=== PATIENT | female | born 1940 | race Caucasian/White ===

== ENCOUNTER 2020-12-12 14:58 | Emergency (ER) | payer MEDICARE ==
[2021-04-05] MEDS ORDERED: METFORMIN HCL500 MG PO (13:08)
[2021-04-05] MEDS ORDERED: SIMVASTATIN20 MG PO (13:10)
[2021-04-05] MEDS ORDERED: LISINOPRIL10 MG PO (13:10)
[2021-04-05] MEDS ORDERED: MULTI FOR HER1 EACH PO (13:11)
[2021-04-05] MEDS ORDERED: ADULT LOW DOSE81 MG PO (13:12)
[2021-04-05] MEDS ORDERED: CALCIUM CARBON600 MG PO (13:13)
[2021-04-05] MEDS ORDERED: COLACE100 MG PO (13:15)
[2021-04-05] MEDS ORDERED: GARLIC1 EAC1 PO (13:16)
[2021-04-05] MEDS ORDERED: VITAMIN D PO (13:17)
== END 2020-12-12 16:25 | disposition home or self-care (01) ==
LOC: ER1 14:58
DX: S61.212A Laceration without foreign body of right middle finger without damage to nail, initial encounter (principal); E11.9 Type 2 diabetes mellitus without complications; W23.0XXA Caught, crushed, jammed, or pinched between moving objects, initial encounter; Y92.009 Unspecified place in unspecified non-institutional (private) residence as the place of occurrence of the external cause
CPT/HCPCS: 12001; 73140; 99283

== ENCOUNTER → 2021-02-07 | Outpatient (CLI) | payer MEDICARE ==
[~2021-02-07] MED LIST: ADULT LOW DOSE81 MG PO; CALCIUM CARBON600 MG PO; COLACE100 MG PO; ELIQUIS2.5 MG PO; GARLIC1 EAC1 PO; HYDROCODON-ACE1 EAC2 PO; LISINOPRIL10 MG PO; METFORMIN HCL500 MG PO; MULTI FOR HER1 EACH PO; SIMVASTATIN20 MG PO; TYLENOL EXTRA500 MG PO; VITAMIN D PO
== END ==
LOC: KOH-I 16:09
DX: M16.0 Bilateral primary osteoarthritis of hip (principal); M47.898 Other spondylosis, sacral and sacrococcygeal region
CPT/HCPCS: 72220; 73522

== ENCOUNTER → 2021-04-05 | Outpatient (CLI) | payer MEDICARE ==
[2021-04-05 11:57] LABS: HEMOGLOBIN 13.6 gm/dl (12.3-15.3); RED BLOOD COUNT 4.29 M/UL (4.00-5.10); WHITE BLOOD COUNT 9.7 K/UL (4.5-11.0)
[2021-04-05 12:32] LABS: BUN/CREATININE RATIO 13 (0-10)
== END ==
LOC: OPSV2 11:00 → EDSTATUS 11:00 → OPSV2 11:04
PROVIDERS: Orthopaedic Surgery
DX: Z01.812 Encounter for preprocedural laboratory examination (principal); M16.11 Unilateral primary osteoarthritis, right hip
CPT/HCPCS: 36415; 80048; 81001; 85025; 87081; 87086; 93005

== ENCOUNTER → 2021-04-06 | Outpatient (CLI) | payer MEDICARE | LOC: MAMO 13:18 | DX: Z12.31 Encounter for screening mammogram for malignant neoplasm of breast (principal); Z80.3 Family history of malignant neoplasm of breast; Z78.0 Asymptomatic menopausal state | CPT/HCPCS: 77063; 77067 ==

== ENCOUNTER → 2021-04-15 | Outpatient (CLI) | payer MEDICARE ==
[2021-04-15 10:28] LABS: BUN/CREATININE RATIO 10 (0-10)
== END ==
LOC: LAB 09:28
PROVIDERS: Orthopaedic Surgery
DX: Z01.812 Encounter for preprocedural laboratory examination (principal); E11.9 Type 2 diabetes mellitus without complications; I10 Essential (primary) hypertension; E78.5 Hyperlipidemia, unspecified; M16.11 Unilateral primary osteoarthritis, right hip
CPT/HCPCS: 80048; 86850; 86900; 86901

== ENCOUNTER 2021-04-16 08:02 | Day surgery (SDC) | payer MEDICARE ==
[~2021-04-16] VITALS: Ht 149.9 cm; Wt 61.2 kg
[~2021-04-16 08:02] MED LIST changes: -ELIQUIS2.5 MG PO; -HYDROCODON-ACE1 EAC2 PO; -TYLENOL EXTRA500 MG PO
[2021-04-16] MEDS ORDERED: TYLENOL EXTRA500 MG PO (08:37)
[2021-04-16] MEDS ORDERED: HYDROCODON-ACE1 EAC2 PO (14:32)
[2021-04-17 04:17] LABS: HEMOGLOBIN 10.4 gm/dl (12.3-15.3); RED BLOOD COUNT 3.35 M/UL (4.00-5.10); WHITE BLOOD COUNT 8.7 K/UL (4.5-11.0)
[2021-04-17 04:41] LABS: BUN/CREATININE RATIO 12 (0-10)
[2021-04-18 06:05] LABS: HEMOGLOBIN 10.4 gm/dl (12.3-15.3); RED BLOOD COUNT 3.32 M/UL (4.00-5.10); WHITE BLOOD COUNT 8.6 K/UL (4.5-11.0)
[2021-04-18 06:29] LABS: BUN/CREATININE RATIO 11 (0-10)
[2021-04-18] MEDS ORDERED: ELIQUIS2.5 MG PO (09:42)
== END 2021-04-18 12:59 | disposition home or self-care (01) ==
LOC: OR 08:02 → EDSTATUS 12:45 → M/S 18:15 → OR 04-18 12:07 → M/S 04-18 12:07 → OR 04-18 12:59
PROVIDERS: Orthopaedic Surgery
PROC: 3E0T3BZ Introduction of Anesthetic Agent into Peripheral Nerves and Plexi, Percutaneous Approach (ICD-10-PCS; 2021-04-16)
PROC: 0SR904A Replacement of Right Hip Joint with Ceramic on Polyethylene Synthetic Substitute, Uncemented, Open Approach (ICD-10-PCS; principal; 2021-04-16 12:45)
DX: M16.0 Bilateral primary osteoarthritis of hip (principal); I10 Essential (primary) hypertension; E78.5 Hyperlipidemia, unspecified; E11.9 Type 2 diabetes mellitus without complications; G89.29 Other chronic pain; K59.00 Constipation, unspecified; Z20.822 Contact with and (suspected) exposure to COVID-19; Z79.82 Long term (current) use of aspirin; Z79.84 Long term (current) use of oral hypoglycemic drugs; Z79.899 Other long term (current) drug therapy
CPT/HCPCS: 36415; 72170; 73501; 76000; 80048; 82962; 85025; 97110-GP-CQ; 97116-GP-CQ; 97161; 97166; 97530-GP-CQ; 97535; C1776; J0690; J1100; J1170; J2250; J2270; J2405; J2704; J2795; J3010; J3370; J7030; J7050; J7120

== ENCOUNTER → 2021-10-29 | Outpatient (CLI) | payer MEDICARE ==
[~2021-10-29] MED LIST changes: +BIO X PO; +CALCIUM PO; +ELIQUIS2.5 MG PO; +GARLIC PO; +HYDROCODON-ACE1 EAC2 PO; +TYLENOL EXTRA500 MG PO; +WOMEN'S DAILY1 EAC1 PO
[2021-10-29 11:13] LABS: HEMOGLOBIN 13.3 gm/dl (12.3-15.3); RED BLOOD COUNT 4.31 M/UL (4.00-5.10); WHITE BLOOD COUNT 5.8 K/UL (4.5-11.0)
[2021-10-29 11:36] LABS: BUN/CREATININE RATIO 21 (0-10)
== END ==
LOC: OPSV2 10:00
PROVIDERS: Orthopaedic Surgery
DX: Z01.818 Encounter for other preprocedural examination (principal); M17.12 Unilateral primary osteoarthritis, left knee
CPT/HCPCS: 36415; 80048; 83036; 85025; 93005

== ENCOUNTER → 2021-11-11 | Outpatient (CLI) | payer MEDICARE ==
[2021-11-11 10:01] LABS: BUN/CREATININE RATIO 14 (0-10)
== END ==
LOC: LAB 09:18
PROVIDERS: Orthopaedic Surgery
DX: Z01.812 Encounter for preprocedural laboratory examination (principal)
CPT/HCPCS: 36415; 80048; 86850; 86900; 86901

== ENCOUNTER → 2021-11-12 | Day surgery (SDC) | payer MEDICARE ==
[~2021-11-12] VITALS: Ht 149.9 cm; Wt 58.5 kg
== END | disposition home or self-care (01) ==
LOC: OR 05:28 → EDSTATUS 11:15 → OR 11:15
PROVIDERS: Orthopaedic Surgery
PROC: 3E0T3BZ Introduction of Anesthetic Agent into Peripheral Nerves and Plexi, Percutaneous Approach (ICD-10-PCS; 2021-11-12)
PROC: 0SRB02A Replacement of Left Hip Joint with Metal on Polyethylene Synthetic Substitute, Uncemented, Open Approach (ICD-10-PCS; principal; 2021-11-12 07:30)
DX: M16.12 Unilateral primary osteoarthritis, left hip (principal); Z20.822 Contact with and (suspected) exposure to COVID-19; I10 Essential (primary) hypertension; E78.5 Hyperlipidemia, unspecified; E11.9 Type 2 diabetes mellitus without complications; Z79.82 Long term (current) use of aspirin; Z79.899 Other long term (current) drug therapy; Z96.641 Presence of right artificial hip joint
CPT/HCPCS: 72170; 73502; 76000; 97162; 97165; 97530; C1776; J0690; J1100; J1170; J2250; J2405; J2704; J2795; J3010; J7030; J7050; J7120

== ENCOUNTER → 2022-04-19 | Outpatient (CLI) | payer MEDICARE | LOC: MAMO 12:27 | DX: Z12.31 Encounter for screening mammogram for malignant neoplasm of breast (principal); Z78.0 Asymptomatic menopausal state | CPT/HCPCS: 77063; 77067 ==

== ENCOUNTER → 2022-06-05 | Outpatient (CLI) | payer MEDICARE | LOC: KOH-I 10:35 | DX: R05.3 Chronic cough (principal) | CPT/HCPCS: 71046 ==